=== PATIENT | male | born 1980 | race Caucasian/White ===

== ENCOUNTER 2018-06-14 02:45 | Emergency (ER) | payer BC ==
[2018-06-14] MEDS ORDERED: Morphine INJ* 4 MG/ML 1 ML SYRINGE (NEW SYRINGE VERSION) IV ONE (03:10)
[2018-06-14] MEDS ORDERED: NS 0.9% 1000 ML* 1,000 ML IV ONE (03:10)
--- NOTE | 2018-06-14 03:17 | ED ---
Headache - HPI Summary HPI Summary: This patient is a 37 year old M presenting to [facility] with a chief complaint of sudden severe headache with neck pain immediately after sexual intercourse at 2300. Patient describes headache as the worst headache of my life at onset. Pain is now 5/10 in severity. Patient reports alcohol consumption earlier tonight. Patient reports nausea, mild blurred vision, and mild dizziness. Denies history of migraines. - History Of Current Complaint Chief Complaint: EDHeadache Stated Complaint: HEADACHE Time Seen by Provider: 06/14/18 03:04 Hx Obtained From: Patient Onset/Duration: Sudden Onset Initially Headache Was: "Worst Headache Ever" Currently Pain Is: Current Pain Scale(0-10)= - 5 Timing: Constant Radiates to: neck Allevating Factors: Nothing Associated Signs And Symptoms: Dizziness, Nausea, Neck Pain, Visual Changes - Allergies/Home Medications Allergies/Adverse Reactions: Allergies Allergy/AdvReac Type Severity Reaction Status Date / Time amoxicillin Allergy Hives Verified 06/14/18 02:49 nystatin Allergy Hives Verified 06/14/18 02:49 PMH/Surg Hx/FS Hx/Imm Hx Respiratory History: Denies: Hx Asthma History: Denies: Hx Acute Renal Failure - Surgical History Surgery Procedure, Year, and Place: none Infectious Disease History: No Infectious Disease History: Reports: Traveled Outside the [place] in Last 30 Days - Family History Known Family History: Negative: Diabetes - Social History Alcohol Use: Occasionally Substance Use Type: Reports: None Smoking Status (MU): Never Smoked Tobacco Review of Systems Positive: Other - dizziness Positive: Blurred Vision Positive: Nausea Positive: Headache Physical Exam - Summary Physical Exam Summary: Appearance: Well-appearing, Well-nourished, lying in bed comfortably Skin: Warm, dry, no obvious rash Eyes: sclera anicteric, no conjunctival pallor ENT: mucous membranes moist, pharynx appears normal Neck: Supple, nontender Respiratory: Clear to auscultation, no signs of respiratory distress Cardiovascular: Normal S1, S2. No murmurs. Normal distal pulses in tibial and radial bilaterally. Abdomen: Soft, nontender, normal active bowel sounds present Musculoskeletal: Normal, Strength/ROM Intact Neurological: A&Ox3, awake and alert, mentation is normal, speech is fluent and appropriate Psychiatric: affect is normal, does not appear anxious or depressed Triage Information Reviewed: Yes Vital Signs On Initial Exam: Initial Vitals Temp Pulse Resp BP Pulse Ox 97.1 F 78 20 140/84 98 06/14/18 02:46 06/14/18 02:46 06/14/18 02:46 06/14/18 02:46 06/14/18 02:46 Vital Signs Reviewed: Yes Diagnostics - Vital Signs Vital Signs Temp Pulse Resp BP Pulse Ox 06/14/18 02:46 97.1 F 78 20 140/84 98 - Laboratory Result Diagrams: 06/14/18 03:18 06/14/18 03:18 Lab Statement: Any lab studies that have been ordered have been reviewed, and results considered in the medical decision making process. - CT Head/Neck CTA CT Interpretation Completed By: Radiologist - No acute findings. ED Physician has reviewed this report. Headache Course/Dx - Course Course Of Treatment: 37 year old M presenting with sudden severe headache with neck pain immediately after sexual intercourse at 2300. Patient describes headache as the worst headache of my life at onset, that is currently imporved. Patient reports nausea, mild blurred vision, and mild dizziness. Bloodwork is unremarkable. Patient is given Imitrex, IVF, and Morphine. Head and Neck CTA reveals no acute findings. Patient is discharged with prescription for Imitrex and Indocin. Discharge - Sign-Out/Discharge Documenting (check all that apply): Patient Departure - discharge - Discharge Plan Condition: Good Disposition: HOME Prescriptions: Indomethacin CAP* [Indocin CAP*] 50 mg PO TID PRN #30 cap PRN Reason: Headache SUMAtriptan TAB* [Imitrex TAB*] 50 mg PO SEE INSTRUCTIONS PRN #10 tab PRN Reason: Headache Patient Education Materials: Acute Headache (ED) Referrals: Sharon Hernandez MD [Medical Doctor] - - Attestation Statements Document Initiated by Scribe: Yes Documenting Scribe: Mariza Zavala Provider For Whom Scribe is Documenting (Include Credential): Erik Burton MD Scribe Attestation: Mariza Frederick, scribed for Erik Burton MD on 06/14/18 at 0601.
[2018-06-14 03:36] LABS: ABS Basophils 0 10^3/ul (0-0.2); ABS Eosinophils 0.1 10^3/ul (0-0.6); ABS Lymphocytes 1.3 10^3/ul (1.0-4.8); ABS Monocytes 0.4 10^3/ul (0-0.8); ABS Neutrophils 3.9 10^3/ul (1.5-7.7); ABS Nucleated RBC 0 10^3/ul; Eosinophil % 1.2 % (0-6); Hematocrit 41 % (42-52); Hemoglobin 13.8 g/dl (14.0-18.0); Lymphocyte % 23.3 % (25-47); Mean Corpuscular HGB Conc 34 g/dl (31-36); Mean Corpuscular Hemoglobin 30 pg (27-31); Mean Corpuscular Volume 90 fL (80-94); Mean Platelet Volume 7.8 um3 (7.4-10.4); Nucleated Red Blood Cells % 0; Platelet Count 160 10^3/ul (150-450); Red Blood Count 4.56 10^6/ul (4.00-5.40); Red Cell Distribution Width 13 % (10.5-15); White Blood Count 5.7 10^3/ul (3.5-10.8)
[2018-06-14 03:45] LABS: EGFR Non-African American 77.8 (>60)
[2018-06-14] MEDS ORDERED: Iohexol 350* (CONTRAST) 500 ML MDV IV ONE (04:14)
--- NOTE | 2018-06-14 05:18 | RAD ---
EXAM: CT Angiography Head With Intravenous Contrast EXAM DATE/TIME: 06/14/2018 4:01 AM CLINICAL HISTORY: 37 years old, male; Pain; Headache; Additional info: Abrupt onset post neck pain, R/O dissection TECHNIQUE: Axial computed tomographic angiography images of the head with intravenous contrast using CT angiography protocol. All CT scans at this facility use at least one of these dose optimization techniques: automated exposure control; mA and/or kV adjustment per patient size (includes targeted exams where dose is matched to clinical indication); or iterative reconstruction. Coronal and sagittal reformatted images were created and reviewed. MIP reconstructed images were created and reviewed. CONTRAST: 80 ml of OMNI 350 administered intravenously. COMPARISON: No relevant prior studies available. FINDINGS: Right internal carotid artery: Unremarkable. Intracranial segment is patent with no significant stenosis. No aneurysm. Right anterior cerebral artery: Unremarkable. No occlusion or significant stenosis. No aneurysm. Right middle cerebral artery: Unremarkable. No occlusion or significant stenosis. No aneurysm. Right posterior cerebral artery: Unremarkable. No occlusion or significant stenosis. No aneurysm. Right vertebral artery: Unremarkable. No occlusion or significant stenosis. No aneurysm. Left internal carotid artery: Unremarkable. Intracranial segment is patent with no significant stenosis. No aneurysm. Left anterior cerebral artery: Unremarkable. No occlusion or significant stenosis. No aneurysm. Left middle cerebral artery: Unremarkable. No occlusion or significant stenosis. No aneurysm. Left posterior cerebral artery: Unremarkable. No occlusion or significant stenosis. No aneurysm. Left vertebral artery: Unremarkable. No occlusion or significant stenosis. No aneurysm. Basilar artery: Unremarkable. No occlusion or significant stenosis. No aneurysm. IMPRESSION: No acute findings. EXAM: CT Angiography Neck With Intravenous Contrast EXAM DATE/TIME: 06/14/2018 4:01 AM CLINICAL HISTORY: 37 years old, male; Pain; Headache; Additional info: Abrupt onset post neck pain, R/O dissection TECHNIQUE: Axial computed tomographic angiography images of the neck with intravenous contrast using CT angiography protocol. All CT scans at this facility use at least one of these dose optimization techniques: automated exposure control; mA and/or kV adjustment per patient size (includes targeted exams where dose is matched to clinical indication); or iterative reconstruction. Coronal and sagittal reformatted images were created and reviewed. MIP and 3D reconstructed images were created and reviewed. CONTRAST: 80 ml of OMNI 350 administered intravenously. COMPARISON: No relevant prior studies available. FINDINGS: VASCULATURE: Right common carotid artery: Normal. No significant stenosis. No dissection or occlusion. Right internal carotid artery: Normal. Extracranial segment is patent with no significant stenosis. No dissection or occlusion. Right external carotid artery: Normal. No occlusion or significant stenosis. Right vertebral artery: Normal. No significant stenosis. No dissection or occlusion. Left common carotid artery: Normal. No significant stenosis. No dissection or occlusion. Left internal carotid artery: Normal. Extracranial segment is patent with no significant stenosis. No dissection or occlusion. Left external carotid artery: Normal. No occlusion or significant stenosis. Left vertebral artery: Normal. No significant stenosis. No dissection or occlusion. NECK: Bones/joints: No acute fracture. IMPRESSION: No acute findings. COMMENT: Degree of carotid stenosis was determined using NASCET or SRU criteria. Mild: <50% stenosis. Moderate: 50-69% stenosis. Severe: 70-94% stenosis. Near occlusion: 95-99% stenosis. Occluded: 100% stenosis. To contact [facility] with a general question: [facility] - [phone] For direct physician to physician contact: Physician Hotline - [phone] [facility] ([facility] Facility ID #[id number])
[2018-06-14] MEDS ORDERED: SUMAtriptan SQ* 6 MG/0.5 ML VIAL SUBCUT ONE (05:43)
[2018-06-14] MEDS ORDERED: PROCHLORPERAZINE INJ 5 MG/ML 2 ML VIAL IV ONE (05:43)
[2018-06-14 06:45] VITALS: BP 138/88
== END 2018-06-14 07:06 | disposition home or self-care (01) ==
LOC: ED 02:45
DX: R51 Headache (principal); M54.2 Cervicalgia
CPT/HCPCS: 36415; 70496; 70498; 80053; 85025; 96361; 96374; 96375; 99283; J0780; J3030; Q9967